=== PATIENT | male | born 1970 | race Caucasian/White ===

== ENCOUNTER → 2018-10-07 | Day surgery (SDC) | payer OTHER ==
[~2018-10-07] MED LIST: Lactated Ringers 1,000 ML IV SCH; Propofol 200 MG/20 ML SDV IV ONE
--- NOTE | 2018-10-07 14:13 | OR ---
DATE OF OPERATION: 10/07/2018 PREOPERATIVE DIAGNOSIS: 1. GASTROESOPHAGEAL REFLUX DISEASE. 2. SCREENING COLONOSCOPY. POSTOPERATIVE DIAGNOSIS: 1. LARGE HIATAL HERNIA. 2. SIGMOID DIVERTICULOSIS. SURGEON: Manpreet Abdi MD PROCEDURE: 1. EGD WITH POLYP REMOVAL X2, KAITLIN. 2. FULL-LENGTH COLONOSCOPY. ANESTHESIA: SALESPERSON SEWING MACHINES. COMPLICATIONS: None. SPECIMEN: 1. Antral KAITLIN. 2. Gastric polyps x2, benign adenomatous polyps. FINDINGS: 1. Full-length EGD. 2. Large hiatal hernia with spontaneous GERD. No distal esophagitis, stricturing, ulceration, or Otero's changes. 3. Two small benign adenomatous polyps, antrum and fundus. 4. Full-length colonoscopy. 5. Mild sigmoid diverticulosis. RECOMMENDATIONS: The patient will have colonoscopy every 10 years. Routine GERD treatment and consideration of lap Margaret. INDICATIONS: The patient was in for routine physical. He has a history of chronic reflux with a prior documented hernia. He also was overdue for a colonoscopy screen. We elected to proceed with both upper and lower scopes. DESCRIPTION OF PROCEDURE: The patient was prepped and draped, placed in the left lateral decubitus position. A lubricated Olympus gastroscope inserted over a bit, advanced to the cricopharyngeus area, and easily intubated in the esophagus. The esophageal lining was benign in its entire course. The Z-line was crisp and sharp around 34 cm. A [id number] hiatal hernia was present. No spontaneous GERD was seen at the time. There was no distal esophagitis, stricturing, ulceration, or Otero's changes. The scope advanced into the stomach, through the pylorus, into the 2nd portion of the duodenum. This and the duodenal bulb were unremarkable. The scope was brought back into the stomach and retroflexed. The upper fundus showed a small adenomatous polyp removed in its entirety with a forceps. There was a 2nd small adenomatous polyp in the proximal antrum also removed with a forceps. There were no other signs of peptic ulcer disease, lesions, mass, polyps, or otherwise. A CLOtest was obtained. The air was then suctioned from the stomach and the scope removed without complication. A lubricated Olympus colonoscope was then inserted and easily and safely advanced to the cecum. We were able to directly visualize the ileocecal valve and appendiceal orifice. The bowel prep was adequate. Upon withdrawal of the scope throughout the entire length of the colon, I could find no polyps, mass, ulceration, or bleeding sites. No vascular abnormalities or signs of colitis. There were a few scattered diverticula in the sigmoid area, but very minimal in severity. No diverticular inflammation. The rectal vault was unremarkable. Retroflexion of the scope in the rectum showed no anal lesions. Air was suctioned, scope removed without complication. DANAE/JESUS MANUEL /[id number]
== END ==
LOC: CC.SDS 11:21
PROVIDERS: ATTEND Family Medicine
DX: Z12.11 Encounter for screening for malignant neoplasm of colon (principal); K21.9 Gastro-esophageal reflux disease without esophagitis; K44.9 Diaphragmatic hernia without obstruction or gangrene; K57.30 Diverticulosis of large intestine without perforation or abscess without bleeding; K31.7 Polyp of stomach and duodenum; N52.9 Male erectile dysfunction, unspecified; G47.33 Obstructive sleep apnea (adult) (pediatric); Z99.89 Dependence on other enabling machines and devices; Z88.8 Allergy status to other drugs, medicaments and biological substances; Z79.899 Other long term (current) drug therapy; Z87.891 Personal history of nicotine dependence
CPT/HCPCS: 45378; 87081; J2704; J7120

== ENCOUNTER 2020-09-29 15:21 | Emergency (ER) | payer OTHER ==
--- NOTE | 2020-09-29 15:44 | EDM.PDOC ---
ED HPI GENERAL MEDICAL PROBLEM - General Chief Complaint: General Stated Complaint: fell-foot/leg pain Time Seen by Provider: 09/29/20 15:35 Source of Information: Reports: Patient History Limitations: Reports: No Limitations - History of Present Illness INITIAL COMMENTS - FREE TEXT/NARRATIVE: Latrell is a 50 year old male who presents with complaints of left ankle pain after falling on the ice while ice fishing. States hurts in ankle and in foot. Has not removed his boot but admits hard to bear weight. Denies any pain or injury elsewhere. Onset: Today Duration: Hour(s):, Constant Quality: Reports: Throbbing Severity: Moderate Improves with: Reports: Rest Worsens with: Reports: Movement Context: Reports: Trauma Associated Symptoms: Reports: No Other Symptoms Left Ankle Pain Score (Numeric/FACES): 5 - Related Data Allergies Allergy/AdvReac Type Severity Reaction Status Date / Time lisinopril AdvReac Cough Verified 10/07/18 11:56 Home Meds: Home Meds Omeprazole 20 mg PO DAILY 09/26/18 [History] Past Medical History Gastrointestinal History: Reports: GERD Social & Family History - Tobacco Use Tobacco Use Status *Q: Never Tobacco User ED ROS GENERAL - Review of Systems Review Of Systems: See Below Constitutional: Reports: No Symptoms HEENT: Reports: No Symptoms Respiratory: Denies: Shortness of Breath Cardiovascular: Denies: Chest Pain, Lightheadedness Endocrine: Denies: Fatigue GI/Abdominal: Denies: Abdominal Pain, Nausea, Vomiting Musculoskeletal: Reports: Leg Pain, Joint Pain Skin: Reports: No Symptoms Neurological: Reports: No Symptoms ED EXAM, GENERAL - Physical Exam Exam: See Below Exam Limited By: No Limitations General Appearance: Alert, WD/WN, No Apparent Distress Extremities: Joint Swelling (mild swelling to left medial malleolar region of left ankle.), Leg Pain, Limited Range of Motion Neurological: Alert, Oriented Skin Exam: Warm, Dry, Ecchymosis (medial ankle/good area) Course - Vital Signs Last Recorded V/S: Last Vital Signs Temp 98.6 F 09/29/20 15:40 Pulse 115 H 09/29/20 15:40 Resp 18 09/29/20 15:40 BP 158/89 H 09/29/20 15:40 Pulse Ox 95 09/29/20 15:40 - Orders/Labs/Meds Orders: Active Orders 24 hr Category Date Time Status Ankle Min 3V Lt [CR] Stat Exams 09/29/20 15:40 Ordered - Re-Assessments/Exams Free Text/Narrative Re-Assessment/Exam: 09/29/20 16:12 Midshaft tibula fracture noted. Placed in cam boot, will need to be no weight bearing with crutches. Will have ortho review films tomorrow and determine if surgical intervention required. Departure - Departure Time of Disposition: 16:13 Disposition: Home, Self-Care 01 Condition: Good Clinical Impression: Fibula fracture Qualifiers: Encounter type: initial encounter Fracture type: closed Laterality: left - Discharge Information *PRESCRIPTION DRUG MONITORING PROGRAM REVIEWED*: No *COPY OF PRESCRIPTION DRUG MONITORING REPORT IN PATIENT HALEY: No Instructions: Nondisplaced Fibular Ankle Fracture Treated With Immobilization, Adult Referrals: Manpreet Abdi MD [Primary Care Provider] - Forms: ED Department Discharge Additional Instructions: 1. Keep leg elevated 2. Ice frequently tonight and tomorrow, 20 minutes every 2 hours 3. keep cam boot on 4. No weight bearing 5. [place] 5/325 1-2 tbs every 6 hours as needed for pain 6. Will contact you with recommendations from ortho tomorrow Sepsis Event Note (ED) - Focused Exam Vital Signs: Vital Signs Temp Pulse Resp BP Pulse Ox 09/29/20 15:40 98.6 F 115 H 18 158/89 H 95 - My Orders Last 24 Hours: My Active Orders 09/29/20 15:40 Ankle Min 3V Lt [CR] Stat - Assessment/Plan Last 24 Hours: My Active Orders 09/29/20 15:40 Ankle Min 3V Lt [CR] Stat
[2020-09-29] MEDS ORDERED: Acetaminophen/HYDROcodone 325-5 MG Tab ONE (16:11)
[2020-09-29] MEDS ORDERED: Take Home: Acetaminophen/HYDROcodone 325-5 MG, 2 Tab Pack PO ONE (16:18)
== END 2020-09-29 16:38 | disposition home or self-care (01) ==
LOC: CC.ED 15:21
DX: S82.492A Other fracture of shaft of left fibula, initial encounter for closed fracture (principal); K21.9 Gastro-esophageal reflux disease without esophagitis; Z79.899 Other long term (current) drug therapy; Z88.8 Allergy status to other drugs, medicaments and biological substances; W00.9XXA Unspecified fall due to ice and snow, initial encounter; Y93.29 Activity, other involving ice and snow
CPT/HCPCS: 73590; 73610; 99283; A9270

== ENCOUNTER 2020-11-25 09:25 | Observation (INO) | payer OTHER ==
[2020-11-25 09:49] LABS: CHLORIDE,CL 100 mEq/L (98-106); SODIUM,NA 135 mEq/L (136-145)
[2020-11-25] MEDS ORDERED: Iopamidol 755 Mg/ML 100 ML Bottle IVPUSH ONE (10:34)
[2020-11-25] MEDS ORDERED: Sodium Chloride 0.9% 10 ML Syringe FLUSH PRN (11:56)
[2020-11-25] MEDS ORDERED: Acetaminophen/HYDROcodone 325-5 MG Tab PO PRN (13:12)
[2020-11-25] MEDS: Apixaban 5 MG Tab PO SCH ×2 (13:14→19:33)
[2020-11-25] MEDS ORDERED: Ketorolac 30 MG/ML SDV IVPUSH PRN (16:03)
[2020-11-25] MEDS ORDERED: Pantoprazole 40 MG in Sodium Chloride 0.9% 100 ML IV SCH (16:15)
[2020-11-25] MEDS: oxyCODONE 5 MG Tab PO PRN ×2 (18:11→22:27)
[2020-11-25] MEDS: Pantoprazole 40 MG Vial IVPUSH SCH (18:12)
[2020-11-25] MEDS ORDERED: Acetaminophen 325 MG Tab PO PRN (19:23)
[2020-11-26] MEDS: oxyCODONE 5 MG Tab PO PRN ×4 (03:52→23:09)
[2020-11-26] MEDS: Apixaban 5 MG Tab PO SCH ×2 (08:04→20:33)
[2020-11-26] MEDS: Pantoprazole 40 MG Vial IVPUSH SCH (08:05)
[2020-11-26] MEDS: Docusate Sodium 100 MG Cap PO PRN ×2 (13:33→21:35)
--- NOTE | 2020-11-26 13:49 | PCM.PN ---
- General Info Date of Service: 11/26/20 Admission Dx/Problem (Free Text): Bilateral Pulmonary Emboli Subjective Update: Sam is a 50 yo male who was admitted yesterday by Dr. Abdi with multiple bilateral segmental PEs. He reports he continues to have left lower chest wall pain, worse with breathing/coughing. Does continue to feel short of breath. O2 sats last night during sleep were 90%, so 2 L O2 via NC was started. Patient's O2 sats currently on RA are 92%. Telemetry remains sinus tachycardia at rate of ~ 105. Did have elevated temperature overnight. Has started using IS. Has been afebrile through remainder of night. He does not offer up any additional complaints. Has been tolerating Eliquis without issue thus far. Does have hx of Covid back in August as well as surgery for fibula fracture in September. Functional Status: Reports: Pain Controlled, Tolerating Diet, Ambulating, Urinating. Denies: New Symptoms - Review of Systems General: Reports: Fever. Denies: Weakness, Fatigue, Chills HEENT: Reports: No Symptoms Pulmonary: Reports: Shortness of Breath, Pleuritic Chest Pain, Cough Cardiovascular: Reports: Chest Pain, Dyspnea on Exertion. Denies: Palpitations, Orthopnea, Edema, Lightheadedness Gastrointestinal: Reports: No Symptoms Genitourinary: Reports: No Symptoms Musculoskeletal: Reports: No Symptoms Skin: Reports: No Symptoms Neurological: Reports: No Symptoms Psychiatric: Reports: No Symptoms - Patient Data Vitals - Most Recent: Last Vital Signs Temp 99.8 F 11/26/20 12:00 Pulse 100 11/26/20 12:00 Resp 18 11/26/20 12:00 BP 152/81 H 11/26/20 12:00 Pulse Ox 90 L 11/26/20 12:00 Weight - Most Recent: 227 lb 6.4 oz Med Orders - Current: Current Medications Acetaminophen (Acetaminophen 325 Mg Tab) 650 mg PO Q6H PRN PRN Reason: Fever Last Admin: 11/25/20 19:34 Dose: 650 mg Documented by: Apixaban (Apixaban 5 Mg Tab) 10 mg PO BID [facility] Last Admin: 11/26/20 08:04 Dose: 10 mg Documented by: Docusate Sodium (Docusate Sodium 100 Mg Cap) 100 mg PO BID PRN PRN Reason: Constipation Ketorolac Tromethamine (Ketorolac 30 Mg/Ml Sdv) 30 mg IVPUSH Q6H PRN PRN Reason: Pain (moderate 4-6) Stop: 11/30/20 16:03 Oxycodone HCl (Oxycodone 5 Mg Tab) 5 mg PO Q4H PRN PRN Reason: Pain (severe 7-10) Last Admin: 11/26/20 11:54 Dose: 5 mg Documented by: Pantoprazole Sodium (Pantoprazole 40 Mg Vial) 40 mg IVPUSH DAILY [facility] Last Admin: 11/26/20 08:05 Dose: 40 mg Documented by: Sodium Chloride (Sodium Chloride 0.9% 10 Ml Syringe) 10 ml FLUSH ASDIRECTED PRN PRN Reason: Keep Vein Open Last Admin: 11/25/20 13:15 Dose: 10 ml Documented by: Discontinued Medications Hydrocodone Bitart/Acetaminophen (Acetaminophen/Hydrocodone 325-5 Mg Tab) 1 tab PO Q4H PRN PRN Reason: Pain Last Admin: 11/25/20 13:21 Dose: 1 tab Documented by: Iopamidol (Iopamidol 755 Mg/Ml 100 Ml Bottle) 100 ml IVPUSH ONETIME ONE Stop: 11/25/20 10:35 Last Admin: 11/25/20 12:54 Dose: 100 ml Documented by: Omeprazole 20 Mg Cap (.Cr) 0 mg PO ACBREAKFAST MIGUEL ANGEL - Exam Quality Assessment: Supplemental Oxygen (rough the night ) General: Alert, Oriented, No Acute Distress HEENT: Pupils Equal, Pupils Reactive, EOMI, Mucous Membr. Moist/[place] Neck: Supple, Trachea Midline Lungs: Normal Respiratory Effort, Decreased Breath Sounds (LLL), Crackles (RLL) Cardiovascular: Regular Rhythm, No Murmurs, Tachycardia GI/Abdominal Exam: Normal Bowel Sounds, Soft, Non-Tender, No Organomegaly, No Distention, No Abnormal Bruit, No Mass, Pelvis Stable Back Exam: Normal Inspection, Full Range of Motion Extremities: Normal Inspection, Normal Range of Motion, Non-Tender, No Pedal Edema, Normal Capillary Refill, Pedal Edema (left ankle 1+) Skin: Warm, Dry, Intact Neurological: No New Focal Deficit Psy/Mental Status: Alert, Normal Affect, Normal Mood - Patient Data Result Diagrams: 11/25/20 09:27 11/25/20 09:27 Sepsis Event Note - Evaluation Sepsis Screening Result: No Definite Risk - Focused Exam Vital Signs: Vital Signs Temp Pulse Resp BP Pulse Ox 11/26/20 12:00 99.8 F 100 18 152/81 H 90 L 11/26/20 08:00 95.2 F L 90 18 137/79 93 L 11/26/20 04:00 97.9 F 91 18 132/77 95 - Problem List & Annotations (1) Pulmonary emboli SNOMED Code(s): 22895715 Code(s): I26.99 - OTHER PULMONARY EMBOLISM WITHOUT ACUTE COR PULMONALE Status: Acute Current Visit: Yes Qualifiers: Pulmonary embolism type: multiple subsegmental (without acute cor pulmonale) Qualified Code(s): I26.94 - Multiple subsegmental pulmonary emboli without acute cor pulmonale - Problem List Review Problem List Initiated/Reviewed/Updated: Yes - My Orders Last 24 Hours: My Active Orders 11/25/20 19:23 Acetaminophen [TylenoL] 650 mg PO Q6H PRN - Assessment Assessment:: Multiple Bilateral Pulmonary Emboli - Plan Plan:: Patient continues to have Left sided chest pain. Has been managed with Tylenol and oxy. Did require O2 overnight. O2 sats currently 92% on RA. Telemetry continues to show sinus tachycardia at rate of 105. Continue with Eliquis. Encourage frequent IS use. Oxygen as needed to maintain O2 sats > 94%. Continue telemetry. Anticipate discharge home tomorrow if patient able to maintain O2 sats.
[2020-11-27] MEDS: Pantoprazole 40 MG Vial IVPUSH SCH (07:51)
[2020-11-27] MEDS: Apixaban 5 MG Tab PO SCH (07:51)
--- NOTE | 2020-11-27 08:44 | PCM.DCSUM1 ---
Discharge Summary - Discharge Data Discharge Date: 11/27/20 Discharge Disposition: Home, Self-Care 01 Condition: Good - Referral to Home Health Primary Care Physician: Manpreet Abdi MD - Discharge Diagnosis/Problem(s) (1) Pulmonary emboli SNOMED Code(s): 88755331 ICD Code: I26.99 - OTHER PULMONARY EMBOLISM WITHOUT ACUTE COR PULMONALE Status: Acute Current Visit: Yes Qualifiers: Pulmonary embolism type: multiple subsegmental (without acute cor pulmonale) Qualified Code(s): I26.94 - Multiple subsegmental pulmonary emboli without acute cor pulmonale - Discharge Plan Home Medications: Home Meds Omeprazole 20 mg PO DAILY 09/26/18 [History] Patient Handouts: Pulmonary Embolism - Patient Data Vitals - Most Recent: Last Vital Signs Temp 98.9 F 11/27/20 03:30 Pulse 87 11/27/20 03:30 Resp 16 11/27/20 03:30 BP 136/78 11/27/20 03:30 Pulse Ox 92 L 11/27/20 04:00 Weight - Most Recent: 227 lb 6.4 oz Med Orders - Current: Current Medications Acetaminophen (Acetaminophen 325 Mg Tab) 650 mg PO Q6H PRN PRN Reason: Fever Last Admin: 11/25/20 19:34 Dose: 650 mg Documented by: Apixaban (Apixaban 5 Mg Tab) 10 mg PO BID [facility] Last Admin: 11/27/20 07:51 Dose: 10 mg Documented by: Docusate Sodium (Docusate Sodium 100 Mg Cap) 100 mg PO BID PRN PRN Reason: Constipation Last Admin: 11/26/20 21:35 Dose: 100 mg Documented by: Ketorolac Tromethamine (Ketorolac 30 Mg/Ml Sdv) 30 mg IVPUSH Q6H PRN PRN Reason: Pain (moderate 4-6) Stop: 11/30/20 16:03 Last Admin: 11/26/20 21:35 Dose: 30 mg Documented by: Oxycodone HCl (Oxycodone 5 Mg Tab) 5 mg PO Q4H PRN PRN Reason: Pain (severe 7-10) Last Admin: 11/26/20 23:09 Dose: 5 mg Documented by: Pantoprazole Sodium (Pantoprazole 40 Mg Vial) 40 mg IVPUSH DAILY [facility] Last Admin: 11/27/20 07:51 Dose: 40 mg Documented by: Sodium Chloride (Sodium Chloride 0.9% 10 Ml Syringe) 10 ml FLUSH ASDIRECTED PRN PRN Reason: Keep Vein Open Last Admin: 11/25/20 13:15 Dose: 10 ml Documented by: Discontinued Medications Hydrocodone Bitart/Acetaminophen (Acetaminophen/Hydrocodone 325-5 Mg Tab) 1 tab PO Q4H PRN PRN Reason: Pain Last Admin: 11/25/20 13:21 Dose: 1 tab Documented by: Iopamidol (Iopamidol 755 Mg/Ml 100 Ml Bottle) 100 ml IVPUSH ONETIME ONE Stop: 11/25/20 10:35 Last Admin: 11/25/20 12:54 Dose: 100 ml Documented by: Omeprazole 20 Mg Cap (.Cr) 0 mg PO ACBREAKFAST [facility]
== END 2020-11-27 10:35 | disposition home or self-care (01) ==
LOC: CC.FCMC 09:25 → UNDOADMOB 11:31 → CC.MS 11:31
PROVIDERS: ADMIT Family Medicine; ATTEND Family Medicine
DX: I26.94 Multiple subsegmental thrombotic pulmonary emboli without acute cor pulmonale (principal); R07.89 Other chest pain; R10.9 Unspecified abdominal pain; R79.89 Other specified abnormal findings of blood chemistry; E66.9 Obesity, unspecified; Z88.8 Allergy status to other drugs, medicaments and biological substances; Z79.899 Other long term (current) drug therapy; Z87.891 Personal history of nicotine dependence; Z68.36 Body mass index [BMI] 36.0-36.9, adult; Z86.16 Personal history of COVID-19; Z87.81 Personal history of (healed) traumatic fracture
CPT/HCPCS: 36415; 71275; 74022; 80048; 80053; 81003; 82150; 84550; 85025; 85379; 86140; 93005; 96374; 96375; 96376; A9270-GY; C9113; G0378; J1885; Q9967

== ENCOUNTER 2024-12-02 08:05 | Emergency (ER) | payer OTHER ==
[2024-12-02 08:31] LABS: BASOPHILS ABSOLUTE AUTO 0.07 10^3/uL (0.00-0.50); BASOPHILS PERCENT AUTO 0.8 % (0-1); EOSINOPHILS PERCENT AUTO 2.2 % (0-6); HEMOGLOBIN 16.3 g/dL (14.0-18.0); IMMATURE GRAN ABSOLUTE AUTO 0.04 10^3/uL (0.00-0.49); IMMATURE GRAN PERCENT AUTO 0.4 % (0.0-4.9); LYMPHOCYTES ABSOLUTE AUTO 1.99 10^3/uL (0.60-5.00); LYMPHOCYTES PERCENT AUTO 21.6 % (24-44); MEAN CORPUSCULAR HEMOGLOBIN 30.4 pg (27.0-32.0); MEAN CORPUSCULAR HGB CONC 34.7 g/dL (32.0-36.0); MEAN CORPUSCULAR VOLUME 87.5 fL (83.0-97.0); MONOCYTES ABSOLUTE AUTO 0.71 10^3/uL (0.00-1.50); MONOCYTES PERCENT AUTO 7.7 % (0-10); NEUTROPHILS ABSOLUTE AUTO 6.21 x10^3/uL (1.80-8.00); NEUTROPHILS PERCENT AUTO 67.3 % (41-71); PLATELET COUNT,PLT 242 10^3/uL (150-400); RED BLOOD CELL COUNT 5.37 x10^6/uL (4.50-6.00); WHITE BLOOD CELL COUNT,WBC 9.2 10^3/uL (4.0-11.0)
[2024-12-02 08:35] LABS: APPEARANCE,URINE CLEAR (CLEAR); BILIRUBIN,URINE NEGATIVE (NEGATIVE); COLOR,URINE YELLOW (YELLOW); GLUCOSE,URINE NEGATIVE (NEGATIVE); KETONES,URINE NEGATIVE (NEGATIVE); LEUKOCYTE ESTERASE,URINE NEGATIVE (NEGATIVE); NITRITE,URINE NEGATIVE (NEGATIVE); OCCULT BLOOD,URINE NEGATIVE (NEGATIVE); PH,URINE 5.5 (4.5-8.0); PROTEIN,URINE NEGATIVE (NEGATIVE); UROBILINOGEN,URINE 0.2 EU/dL (0.2-1.0)
[2024-12-02 08:44] LABS: ALANINE AMINOTRANSFERASE,ALT 70 U/L (12-78); ALBUMIN 3.9 g/dL (3.4-5.0); ALKALINE PHOSPHATASE 69 U/L (46-116); ASPARTATE AMNIOTRANSFERASE,AST 34 U/L (15-37); BILIRUBIN TOTAL 1.5 mg/dL (0.0-1.0); BLOOD UREA NITROGEN,BUN 7 mg/dL (7-18); CALCIUM 9.1 mg/dL (8.4-10.1); CARBON DIOXIDE,CO2 30 mmol/L (21-32); CHLORIDE,CL 102 mEq/L (98-106); CREATININE 1.1 mg/dL (0.7-1.3); GLUCOSE RANDOM 91 mg/dL (75-99); POTASSIUM,K 5.3 mEq/L (3.5-5.0); PROTEIN TOTAL,TP 7.9 g/dL (6.4-8.2); SODIUM,NA 139 mEq/L (136-145)
[2024-12-02] MEDS: HYDROmorphone 1 MG/ML Syringe IVPUSH ONE (08:46)
[2024-12-02 08:47] LABS: C-REACTIVE PROTEIN < 0.50 mg/dL (<=0.50); ESTIMATED GFR 79 mL/min (>=60)
[2024-12-02] MEDS: Ketorolac 30 MG/ML SDV IVPUSH ONE (09:14)
[2024-12-02] MEDS: Orphenadrine 60 MG/2 ML Inj IM ONE (09:14)
== END 2024-12-02 11:30 | disposition home or self-care (01) ==
LOC: CC.ED 08:05
DX: M54.50 Low back pain, unspecified (principal); I10 Essential (primary) hypertension; Z88.8 Allergy status to other drugs, medicaments and biological substances
CPT/HCPCS: 36415; 80053; 81003; 85025; 85379; 86140; 96372; 96374; 96375; 99284-25; J1171; J1885; J2360